=== PATIENT | female | born 1990 | race Caucasian/White ===

== ENCOUNTER 2020-05-31 18:11 | Emergency (ER) | payer OTHER ==
[2020-05-31 18:26] VITALS: BP 121/58
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
--- NOTE | 2020-05-31 19:40 | NUR ---
Pt still has not returned with restraining order. [facility] Pt.
--- NOTE | 2020-05-31 19:50 | NUR ---
Final attempt made to locate Pt. Pt did not return with restraining order. Appears Pt LWOBS. JUAN DANIEL Causey made aware.
== END 2020-05-31 19:53 | disposition left against medical advice (07) ==
LOC: ER 18:12
DX: M54.9 Dorsalgia, unspecified (principal); Z53.21 Procedure and treatment not carried out due to patient leaving prior to being seen by health care provider